=== PATIENT | male | born 1975 | race Two or more races ===

== ENCOUNTER → 2023-11-20 | Emergency (ER) | payer OTHER ==
[~2023-11-20] VITALS: Ht 175.3 cm; Wt 74.8 kg
[~2023-11-20] MED LIST: ACET325T53 PO; ACETAMINOPHEN ES 500 MG TABLET ONE
[2023-11-20] MEDS: ACETAMINOPHEN ES 500 MG TABLET PO ONE (13:55)
[2023-11-20 16:38] VITALS: BP 136/88; TEMP 98.4; O2SAT 100
== END | disposition home or self-care (01) ==
LOC: ER 13:14
DX: B34.9 Viral infection, unspecified (principal); Z79.899 Other long term (current) drug therapy; Z20.822 Contact with and (suspected) exposure to COVID-19

== ENCOUNTER 2024-04-30 11:01 | Emergency (ER) | payer OTHER ==
[~2024-04-30] VITALS: Ht 175.3 cm; Wt 79.4 kg
[~2024-04-30 11:01] MED LIST changes: -ACETAMINOPHEN ES 500 MG TABLET ONE
[2024-04-30] MEDS ORDERED: ACETAMINOPHEN ES 500 MG TABLET ONE (12:07)
[2024-04-30] MEDS ORDERED: KETOROLAC TROMETHAMINE 15 MG/ML VIAL ONE (12:08)
[2024-04-30] MEDS ORDERED: ONDANSETRON HCL/PF 4 MG/2 ML VIAL ONE (12:08)
[2024-04-30 12:10] LABS: APPEARANCE,URINE SLIGHTLY CLOUDY (CLEAR); BILIRUBIN,URINE 1+ (NEGATIVE); BLOOD, URINE NEGATIVE Ery/uL (NEGATIVE); COLOR,URINE DARK YELLOW (YELLOW); KETONES,URINE 1+ mg/dL (NEGATIVE); LEUKOCYTE ESTERASE ,URINE NEGATIVE (NEGATIVE); NITRITE, URINE NEGATIVE (NEGATIVE); PROTEIN,URINE 2+ mg/dl (NEGATIVE); UGLUCOSE NEGATIVE (NEGATIVE)
[2024-04-30 12:16] LABS: ADD URINE CULTURE NO; BACTERIA,URINE Rare /HPF (None Seen); SQUAMOUS EPITHELIAL CELL,UR Moderate /HPF (None Seen); WBC,URINE 0-2 /HPF (0-3)
[2024-04-30 12:23] LABS: BASOPHILS # (AUTO) 0.1 K/uL (0.0-0.2); BASOPHILS % (AUTO) 0.9 % (0.0-2.0); EOSINOPHILS % (AUTO) 0.2 % (0.0-6.0); HEMATOCRIT 41 % (39-51); HEMOGLOBIN 13.8 g/dL (13.5-17.5); LYMPHOCYTES % (AUTO) 22.8 % (20.0-44.0); MEAN CORPUSCULAR HEMOGLOBIN 31 PG (26.0-33.0); MEAN CORPUSCULAR HGB CONC 34 g/dl (31.0-36.0); MEAN CORPUSCULAR VOLUME 93 fL (80-96); MONOCYTES # (AUTO) 0.6 K/uL (0.1-1.30); MONOCYTES % (AUTO) 6.4 % (2.0-12.0); NEUTROPHILS # (AUTO) 6.2 K/uL (1.8-8.9); NEUTROPHILS % (AUTO) 69.7 % (43.0-81.0); PLATELET COUNT (AUTO) 259 K/uL (150-450); RED BLOOD CELL COUNT(AUTO) 4.41 MIL/uL (4.5-6.0); RED CELL DISTRIBUTION WIDTH 14.2 % (11.5-15.0); WHITE BLOOD COUNT (AUTO) 8.9 K/uL (4.3-11.0)
[2024-04-30] MEDS: IV NS 0.9% 1,000 ML BAG IV ONE (12:23)
[2024-04-30] MEDS: KETOROLAC TROMETHAMINE 15 MG/ML VIAL IV ONE (12:25)
[2024-04-30] MEDS: ONDANSETRON HCL/PF 4 MG/2 ML VIAL IVP ONE (12:25)
[2024-04-30] MEDS: ACETAMINOPHEN ES 500 MG TABLET PO ONE (12:26)
[2024-04-30 12:27] LABS: CALCIUM, SERUM 9.3 mg/dL (8.5-10.1); CREATININE 1.2 mg/dL (0.6-1.3); POTASSIUM 4.3 mmol/L (3.5-5.1)
[2024-04-30 12:32] LABS: BILIRUBIN,DIRECT 0.2 mg/dL (0.0-0.2); BILIRUBIN,TOTAL 0.9 mg/dL (0.2-1.0); TOTAL PROTEIN, SERUM 7.5 g/dL (6.4-8.2)
[2024-04-30] MEDS ORDERED: LIDO30AD10 TP (12:45)
[2024-04-30] MEDS ORDERED: CYCL5TAB PO (12:45)
[2024-04-30] MEDS ORDERED: IBUP-1955 PO (12:45)
[2024-04-30 13:59] VITALS: BP 138/95; TEMP 98.1; O2SAT 98
== END 2024-04-30 14:13 | disposition home or self-care (01) ==
LOC: ER 11:03
DX: R10.31 Right lower quadrant pain (principal); R10.32 Left lower quadrant pain; M54.59 Other low back pain; R31.9 Hematuria, unspecified; R30.9 Painful micturition, unspecified; F10.10 Alcohol abuse, uncomplicated
CPT/HCPCS: 99285; 74176; 96374; 96361; 96375; 76870; 85025; 80048; 83690; 80076; 81001; 36415; J2405; J7030; J1885